=== PATIENT | male | born 1955 | race Caucasian/White ===

== ENCOUNTER 2022-11-27 15:48 | Inpatient (IN) ==
[2022-11-27 16:04] VITALS: BP 108/70
[2022-11-27] MEDS ORDERED: ENOXAPARIN 100 MG/ML SYRINGE SUBCUT STA (16:17)
[2022-11-27] MEDS ORDERED: ASPIRIN 325 MG TABLET PO STA (16:17)
[2022-11-27 16:51] LABS: Basophils % 0.2 % (0.0-0.8); Eosinophils % 0.1 % (0.00-10.9); Hematocrit 48.8 VOL% (42.0-52.0); Hemoglobin 16.3 GM/DL (14.0-18.0); Immature Granulocytes % 0.4 %; Immature Granulocytes Absolute 0.04 #; Lymphocytes # 1.9 10*3/uL (1.4-4.0); Lymphocytes % 16.8 % (21.2-54.2); Mean Corpuscular HGB Conc 33.4 GM/DL (32-36); Mean Corpuscular Volume 86.4 FL (87-102); Mean Platelet Volume 8.8 FL (9.6-12.0); Monocytes # 0.9 10*3/uL (0.11-0.8); Monocytes % 8.1 % (1.7-12.7); Neutrophils % 74.4 % (38.7-73.9); Platelet Count 439 T/CUMM (130-400); Red Blood Count 5.65 MC/CUMM (3.8-5.5); Red Cell Distribution Width 12.3 % (9.3-17.3); White Blood Count 11.34 T/CUMM (4-12)
[2022-11-27 16:53] LABS: Albumin 4.3 G/DL (3.4-5.0); Bilirubin,Total 0.5 MG/DL (0.20-1.00); Calcium 9.2 MG/DL (8.5-10.1); Osmolality,Calculated 285.5 MOS/KG (273-304); Potassium 3.6 MMOL/L (3.5-5.1); Total Protein 8.3 G/DL (6.4-8.2)
[2022-11-27] MEDS ORDERED: ZALEPLON 5 MG CAPSULE PO PRN (17:34)
[2022-11-27] MEDS ORDERED: SIMETHICONE CHEW 125 MG TABLET PO PRN (17:34)
[2022-11-27] MEDS ORDERED: ALUMINUM/MAGNES/SIMETH MAX STR 30 ML UDCUP PO PRN (17:34)
[2022-11-27] MEDS ORDERED: DOCUSATE SODIUM 100 MG CAPSULE PO PRN (17:34)
[2022-11-27] MEDS ORDERED: diphenhydrAMINE CAP 25 MG CAPSULE PO PRN (17:34)
[2022-11-27] MEDS ORDERED: MORPHINE 2 MG/1 ML SYRINGE IV PRN (17:34)
[2022-11-27] MEDS ORDERED: LACTULOSE 20 GM/30 ML UDCUP PO PRN (17:34)
[2022-11-27] MEDS ORDERED: ACETAMINOPHEN 325 MG TABLET PO PRN (17:34)
[2022-11-27] MEDS ORDERED: CALCIUM CARBONATE CHEW 500 MG TABLET PO PRN (17:34)
[2022-11-27] MEDS ORDERED: ONDANSETRON 4 MG/2 ML VIAL IV PRN (17:34)
[2022-11-27] MEDS ORDERED: HYDROmorphone 1 MG/1 ML SYRINGE ONE (17:58)
[2022-11-27] MEDS ORDERED: MIDAZOLAM 2 MG/2 ML VIAL ONE (17:58)
[2022-11-27] MEDS ORDERED: SODIUM CHLORIDE 0.9% 1,000 ML IV SCH (18:00)
[2022-11-27] MEDS ORDERED: HEPARIN 5,000 UNIT/1 ML VIAL ONE (18:55)
[2022-11-27] MEDS ORDERED: METOPROLOL TARTRATE 5 MG/5 ML VIAL IV ONE (18:55)
[2022-11-27] MEDS ORDERED: NITROGLYCERIN DRIP 50 MG/250 ML BOTTLE IV ONE (18:55)
[2022-11-27] MEDS ORDERED: NITROGLYCERIN DRIP 50 MG/250 ML BOTTLE IV PRN (18:56)
[2022-11-27] MEDS ORDERED: HEPARIN DRIP 25,000 UNITS/500 ML PREMIX IV ONE (19:03)
[2022-11-27] MEDS ORDERED: HEPARIN DRIP 25,000 UNITS/500 ML PREMIX IV SCH (19:30)
[2022-11-27] MEDS ORDERED: NITROGLYCERIN SL 0.4 MG TABLET SL PRN (19:30)
[2022-11-27 20:52] LABS: PT Patient Result 10.7 SECS (10.1-12.1); Partial Thromboplastin Time 28.4 SECS (23.7-32.9)
[2022-11-27 20:57] LABS: CKMB % 5.59 %
[2022-11-27 20:59] LABS: High Sensitive Troponin I* 25442.8 ng/L (0-78)
[2022-11-27] MEDS ORDERED: ROSUVASTATIN 20 MG TABLET PO SCH (21:00)
[2022-11-27] MEDS ORDERED: carvediloL 3.125 MG TABLET PO SCH (21:00)
[2022-11-28] MEDS ORDERED: ENOXAPARIN 40 MG/0.4 ML SYRINGE SUBCUT SCH (09:00)
[2022-11-28] MEDS ORDERED: ASPIRIN EC 81 MG TABLET PO SCH (09:00)
[2022-11-28] MEDS ORDERED: PANTOPRAZOLE 40 MG TABLET PO SCH (09:00)
[2022-11-28] MEDS ORDERED: CETIRIZINE 10 MG TABLET PO SCH (09:00)
== END 2022-11-27 23:31 | disposition hospice, home (50) | DRG 281 ==
LOC: N.ED 15:48 → N.EDINP 17:34 → N.ICU 19:47
PROVIDERS: ADMIT Internal Medicine Cardiovascular Disease; ATTEND Internal Medicine Cardiovascular Disease